=== PATIENT | male | born 2000 | race American Indian/Alaskan Native ===

== ENCOUNTER 2024-05-23 11:47 | Emergency (ER) | payer OTHER, BC ==
[~2024-05-23] VITALS: Ht 193 cm; Wt 88.8 kg
[2024-05-23] MEDS ORDERED: DIPHTH,PERTUSS(ACELL),TET VAC 0.5 ML SYRINGE IM ONE (12:00)
[2024-05-23] MEDS ORDERED: FLUORESCEIN SOD 1 EA STRP OD ONE (12:00)
[2024-05-23] MEDS ORDERED: TETRACAINE HCL 0.5% 4 ML BTL OD SCH (12:00)
[2024-05-23 16:00] VITALS: BP 139/76
== END 2024-05-23 16:01 | disposition home or self-care (01) ==
LOC: ED 11:47
DX: S01.84XA Puncture wound with foreign body of other part of head, initial encounter (principal); S01.24XA Puncture wound with foreign body of nose, initial encounter; S51.831A Puncture wound without foreign body of right forearm, initial encounter; S41.131A Puncture wound without foreign body of right upper arm, initial encounter; W34.010A Accidental discharge of airgun, initial encounter
CPT/HCPCS: 70150; 70450; 70496; 73060; 90471; 90715; 99284-25; Q9967